=== PATIENT | female | born 1950 | race Caucasian/White ===

== ENCOUNTER 2016-07-29 14:46 | Emergency (ER) | payer OTHER ==
[2016-07-29 15:52] LABS: BASOPHILS # (AUTO) 0.13 10*3/UL; BASOPHILS % (AUTO) 1.5 % (0-1); EOSINOPHILS # (AUTO) 0.17 10*3/UL; HEMATOCRIT 40.2 % (37.0-47.0); HEMOGLOBIN 13.2 g/dL (12.0-16.0); MEAN CORPUSCULAR HEMOGLOBIN 29.7 PG (27-31); MEAN CORPUSCULAR HGB CONC 32.8 g/dL (33-37); MEAN CORPUSCULAR VOLUME 90.3 FL (81-99); MEAN PLATELET VOLUME 9.8 FL (7.4-12.2); MONOCYTES # (AUTO) 0.48 10*3/UL (0.3-0.8); MONOCYTES % (AUTO) 5.6 % (5-15); NEUTROPHILS # (AUTO) 6.81 10*3/UL; NEUTROPHILS % (AUTO) 80.2 % (50-80); RED BLOOD COUNT 4.45 10^6/uL (4.20-5.40)
[2016-07-29 15:53] LABS: PLATELET MORPHOLOGY COMMENT NORMAL MORPHOLOGY (NORM); RBC MORPHOLOGY COMMENT NORMAL MORPHOLOGY (NORM); WBC MORPHOLOGY COMMENT NORMAL MORPHOLOGY (NORM)
[2016-07-29 15:54] LABS: BLOOD UREA NITROGEN 14 mg/dL (7-22); BUN/CREATININE RATIO 8.75 (6-20); CALCIUM 9.5 mg/dL (8.7-10.7); EST GLOMERULAR FILTRATION 32 (>60 ml/min/1.73m(2)); MAGNESIUM 1.5 mg/dL (1.6-2.4); SERUM ALBUMIN 4.9 g/dL (3.5-4.8)
[2016-07-29 15:58] LABS: SALICYLATE < 1.0 mg/dl (0-20)
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
[2016-07-29 16:47] LABS: BILIRUBIN,URINE NEGATIVE (NEG); COLOR,URINE YELLOW; GLUCOSE, URINE (UA) NEGATIVE (NEG); NITRATE,URINE NEGATIVE (NEG); OCCULT BLOOD,URINE LARGE (NEG); PH,URINE 6.5 (5.0-8.5); PROTEIN,URINE 100 mg/dl (NEG); UROBILINOGEN,URINE 0.2 EU/dL (0.2)
[2016-07-29 17:00] LABS: CLARITY,URINE CLOUDY (CLEAR)
[2016-07-29 17:01] LABS: AMPHETAMINE SCREEN NEGATIVE (NEG); BACTERIA,URINE MANY; COCAINE SCREEN NEGATIVE (NEG); METHADONE URINE SCREEN NEGATIVE (NEG); METHAMPHETAMINES SCREEN,URINE NEGATIVE (NEG); OPIATE SCREEN,URINE NEGATIVE (NEG); SQUAMOUS EPITHELIAL CELL,UR RARE; URINE SAMPLE TYPE CLEAN CATCH URINE; URINE SPECIFIC GRAVITY - MAN 1.015; WBC,URINE >100
[2016-07-29 17:02] LABS: CANNABINOID SCREEN,URINE NEGATIVE (NEG)
[2016-07-29] MEDS ORDERED: CIPROFLOXACIN 500 MG TABLET PO ONE (17:15)
[2016-07-29 17:23] VITALS: RESP 15; TEMP 98.2
== END 2016-07-29 19:40 ==
LOC: ER 14:46
DX: F23 Brief psychotic disorder (principal); F22 Delusional disorders; R41.0 Disorientation, unspecified; N39.0 Urinary tract infection, site not specified; S60.211A Contusion of right wrist, initial encounter; S60.212A Contusion of left wrist, initial encounter; E11.9 Type 2 diabetes mellitus without complications
CPT/HCPCS: 36415; 80053; 80305; 80320; 80329; 81001; 81003; 83735; 84443; 85025; 87077; 87088; 87186; 99284